=== PATIENT | male | born 1995 | race Caucasian/White ===

== ENCOUNTER 2017-01-02 05:18 | Emergency (ER) | payer OTHER ==
[~2017-01-02] VITALS: Ht 177.8 cm; Wt 72.2 kg
[2017-01-02 05:22] VITALS: TEMP 36.7; Ht 177.8 cm; Wt 72.2 kg
[2017-01-02] MEDS ORDERED: KETOROLAC TROMETHAMINE 60 MG/2 ML VIAL IM STA (05:33)
[2017-01-02] MEDS ORDERED: NAPROXEN 250 MG TAB PO STA (05:34)
--- NOTE | 2017-01-02 06:22 | EMERGENCY ROOM VISIT NOTE ---
ED Visit Note First contact with patient: 05:26 CHIEF COMPLAINT: Shoulder pain HISTORY OF PRESENT ILLNESS: This 21 yo patient presents to the emergency department with girlfriend complaining of pain in the left shoulder for the past 3 weeks. There is limitation of motion of the arm because of the pain. The pain is moderate, constant and increases with motion of the hand and arm. The patient states the pain is throbbing and 8/10. The patient has taken Motrin without relief of the pain. No previous significant previous shoulder disease or injury. No numbness or tingling. no neck no back pain. No chest pain or shortness of breath. No abdominal pain or nausea/vomiting. No cough. REVIEW OF SYSTEMS: A 6 system review of systems was performed with positives and pertinent negatives in the HPI. ALLERGIES: none MEDICATIONS: none PMH: none SOCIAL HISTORY: No drug use PHYSICAL EXAM: Vital Signs: Reviewed nurse's notes, vital signs stable. GENERAL : Pleasant male, in no acute distress, but appears to be in pain, well-developed , well-nourished. MUSCULOSKELETAL: There is no deformity in the contour of the left shoulder and there are no romelia deformities noted. There is tenderness over the AC joint. The patient's range of motion is intact but painful. Supraspinatus strength 4/5. There is no clavicle tenderness. No tenderness of the humerus, elbow, wrist, or hand. [employer] strength 5/5. Radial pulse 2+. NECK: no tenderness to palpation over the cervical spine. HEART: Regular rate and rhythm without murmurs gallops or rubs. LUNGS: Clear to auscultation bilaterally without wheezes, rales or rhonchi. No accessory muscle use. No retractions. NEURO: The patient is alert and oriented to person, place, and time. Normal sensation to light and sharp touch. Capillary refill less than 2 seconds. EMERGENCY DEPARTMENT COURSE: I examined the patient. An X-ray of the left shoulder was reviewed by myself and my attending and shows possible AC joint separation without fracture. Patient was placed in a sling and neurovascular status was checked after placement and is intact. Patient was advised to take his arm out of the sling every few hours and do range of motion exercises as not to develop a frozen shoulder. He was advised to follow-up [facility] orthopedics in a few days or here in the ER sooner for severe pain, numbness, tingling, worsening signs or symptoms or as needed. He was discharged home in stable condition.. DIAGNOSIS: Left Shoulder pain, possible AC joint separation DISCHARGE INSTRUCTIONS & TREATMENT: as below Current/Historical Medications No Active Prescriptions or Reported Meds Allergies Coded Allergies: No Known Allergies (Unverified , 01/02/17) Vital Signs Date Time Temp Pulse Resp B/P (MAP) Pulse Ox O2 Delivery O2 Flow Rate FiO2 01/02/17 05:22 36.7 80 20 129/77 97 Room Air Medications Administered Medications (Trade) Dose Ordered Sig/Maria Teresa Route Start Time Stop Time Status Last Admin Dose Admin Naproxen (Naprosyn Tab) 500 mg NOW STAT PO 01/02/17 05:34 01/02/17 05:35 DC 01/02/17 05:50 500 MG Departure Information Impression Primary Impression: Left shoulder pain Dispostion Home / Self-Care Condition GOOD Prescriptions No Active Prescriptions or Reported Meds Referrals Ryan Kim, DO Forms HOME CARE DOCUMENTATION FORM, IMPORTANT VISIT INFORMATION Patient Instructions [facility], ED Sprain AC Joint Additional Instructions Ibuprofen(Motrin, Advil) may be used for fever or pain. Use 600mg every six hours as needed. Take with food. Avoid using more than 2400mg in a 24 hour period. Do not use 2400mg per day for more than three consecutive days without physician direction. Prolonged inappropriate use can lead to stomach upset or ulcers. This medication can be taken if you need to drive, work, or perform activities which may be dangerous when taking narcotic pain medication. (AND/OR) Acetaminophen(Tylenol) may be used for fever or pain. Use 1000mg every six hours as needed. Avoid using more than 3000mg in a 24 hour period. This medication can be taken if you need to drive, work, or perform activities which may be dangerous when taking narcotic pain medication. Ice compresses for 20 minutes at a time four times daily for 2-3 days. Use the sling as instructed. Remove your arm from the sling 4-6 times a day and move all the joints around to keep them loose. Rest and elevate your injury. Continue current medications. Return to the ER immediately for any numbness, tingling, severe pain, extreme swelling in the extremity or as needed. Call Orthopedics on Tuesday to arrange follow up for your injury.
[2017-01-02 07:02] VITALS: BP 123/72; PULSE 88; O2SAT 98
--- NOTE | 2017-01-02 07:12 | DIAGNOSTIC IMAGING REPORT ---
LEFT SHOULDER MIN 2 VIEWS ROUTINE CLINICAL HISTORY: Left shoulder pain. COMPARISON: None FINDINGS: Alignment of the left shoulder is anatomic. There is no fracture or suspicious lesion. Joint spaces are preserved. IMPRESSION: Unremarkable left shoulder radiographs. Electronically signed by: Jamal Pandey M.D. 01/02/2017 7:11 AM Dictated Date/Time: 01/02/2017 7:10 AM
== END 2017-01-02 07:06 | disposition home or self-care (01) ==
LOC: C.EDB 05:20
DX: M25.512 Pain in left shoulder (principal)